=== PATIENT | female | born 1975 | race Caucasian/White ===

== ENCOUNTER 2016-07-09 00:30 | Emergency (ER) | payer SELFPAY ==
[2016-07-09 00:45] VITALS: BMI 23.9
--- NOTE | 2016-07-09 01:01 | DR.GENAD ---
HPI - PCP Primary Care Physician: nfd - HPI Comment HPI Comment: PATIENT SAID THE PALPITATION WAKES HER UP SOME TIME. CAFFEINE MAKES IT WORSE. TONIGHT WOKE UP WITH AN EPISODE THAT IS MAKING HER DIZZY. NO FEVER. DENIES USE OF ILLICIT DRUGS. PATIENT IS SLEEPING POORLY.THIS ALSO IS GETTING WORSE. - Complaint/Symptoms Chief Complaint Doctors Comments: PALPITATION ON AND OFF FOR FEW WEEKS. Chief Complaint:: heart feels like its in a weird rhythm for a couple of weeks now. if patient drinks tea or soda it makes her heart feel weird also.patient can sleep well because of it patient has a history of palpatations. patient stays hot all the time. - Nurses notes reviewed Nurses Notes Review: Yes - Source History Provided: Patient - Mode of Arrival Mode of Arrival: Ambulatory - Timing Onset of Chief Complaint: 06/24/16 Came on: Suddenly - Duration Duration: Constant Duration: Days - Severity Severity: Moderate PMH - PMH Past Medical History: Yes Past Medical History: Anxiety Past Medical History Comment: palpatations Past Surgical History: Yes Surgical History: Hysterectomy Past Surgical History Comment: tubeligation - Family History History of Family Medical Conditions: Yes Family Medical History: Cancer - Social History Does patient currently use any type of tobacco product: Yes Have you used tobacco products in the last 12 months: Yes Type of Tobacco Use: Cigarettes How many years tobacco product used: 27 Does any household member use tobacco: Yes Alcohol Use: None Do you use any recreational Drugs:: No Lives With: Significant Other Lives Where: Home - infectious screening In the last 2 months have you had wt loss of >10#?: NO Have you had fever, night sweats or hemotysis?: No Have you traveled outside the country in the last 6 months?: No Isolation: Standard ROS - Review of Systems Constitutional: Weakness, Fatigue. negative: Chills, Fever Eyes: No Symptoms Reported. negative: Eye Pain, Discharge ENTM: No Symptoms Reported. negative: Ear Pain, Nose Discharge, Nose Congestion , Throat Pain Respiratoy: No Symptoms Reported. negative: Productive Cough, Non-Productive Cough, Short of Breath, Wheezing, Hemoptysis Cardiovascular: Palpitations Gastrointestinal/Abdominal: Nausea. negative: Abdominal Pain, Constipation, Diarrhea, Vomiting Genitourinary: No Symptoms Reported. negative: Dysuria, Frequency, Hematuria Neurological: No Symptoms Reported, Weakness, Dizziness. negative: Headache Musculoskeletal: Muscle Pain Integumentary: No Symptoms Reported Hematologic/Lymphatic: No Symptoms Reported Endocrine: No Symptoms Reported All Other Systems: Reviewed and Negative PE - Vital Signs Vitals: Temperature 97.4 F Pulse Rate [Left Brachial] 69 Pulse Rate 75 Respiratory Rate 16 Blood Pressure [Left Arm] 104/68 Blood Pressure 114/64 O2 Sat by Pulse Oximetry 98 - General Limitations: No Limitations General Appearance: Alert - Head Head Exam: Normal Inspection - Eyes Eye exam: Normal Appearance - ENT ENT Exam: Normal External Ear Exam External Ear Exam: Normal External Inspection TM/Canal Exam: Bilateral Normal Nose Exam: Normal Nose Exam Mouth Exam: Normal Inspection Throat Exam: Normal Inspection - Neck Neck Exam: Normal Inspection - Chest Chest Inspection: Normal Inspection - Respiratory Respiratory Exam: Normal Lung Sounds Bilat Respiratory Exam: Bilateral Clear to Auscultation - Cardiovascular Cardiovascular Exam: Regular Rate, Normal Rhythm, Normal Heart Sounds - Abdominal Exam Abdominal Exam: Normal Bowel Sounds, Soft. negative: Tenderness - Extremities Extremities Exam: Normal Inspection - Back Back Exam: Normal Inspection - Neurologic Neurological Exam: Alert, Oriented X3 - Psychiatric Psychiatric Exam: Anxious - Skin Skin Exam: Normal Color MDM - Additional Information Additional Information Obtained From: Family - Differential Diagnosis Differential Diagnosis: PALPITATION, INSOMNIA Course - Treatment Treatment: SEE ORDERS - Education/Counseling Education/Counseling: Patient, Family, Education Educated On: Diagnosis, Needs for Follow Up ROR - Labs Reviewed Laboratory Results Reviewed?: Yes Result Diagrams: 07/09/16 01:10 07/09/16 01:10 Laboratory: WBC 6.5 X10^3/uL (3.6-10.0) 07/09/16 01:10 RBC 4.51 X10^6/uL (3.5-5.4) 07/09/16 01:10 Hgb 13.4 g/dL (12.0-16.0) 07/09/16 01:10 Hct 40.0 % (36.0-47.0) 07/09/16 01:10 MCV 88.7 fL (80.0-100.0) 07/09/16 01:10 MCH 29.8 pg (27.0-34.0) 07/09/16 01:10 MCHC 33.6 g/dL (33.0-35.0) 07/09/16 01:10 RDW 13.5 % (11.6-16.5) 07/09/16 01:10 Plt Count 176 X10^3/uL (150.0-450.0) 07/09/16 01:10 MPV 9.9 fL (7.4-11.0) 07/09/16 01:10 Neut % 49.5 % (42.0-75.0) 07/09/16 01:10 Lymph % 40.4 % (21.0-51.0) 07/09/16 01:10 Tyrrell % 6.1 % (0.0-13.0) 07/09/16 01:10 Eos % 2.7 % (0.9-2.9) 07/09/16 01:10 Baso % 1.3 % (0.2-1.0) H 07/09/16 01:10 Neut # 3.2 x10^3/uL (2.2-4.8) 07/09/16 01:10 Lymph # 2.6 X10^3/uL (1.3-2.9) 07/09/16 01:10 Tyrrell # 0.4 x10^3/uL (0.3-0.8) 07/09/16 01:10 Eos # 0.2 x10^3/uL (0.0-0.2) 07/09/16 01:10 Baso # 0.1 X10^3/uL (0.0-0.1) 07/09/16 01:10 Absolute Nucleated RBC 0.0 /100WBC 07/09/16 01:10 Sodium 144 mmol/L (136-145) 07/09/16 01:10 Corrected Sodium TNP 07/09/16 01:10 Potassium 4.0 mmol/L (3.5-5.1) 07/09/16 01:10 Chloride 109 mmol/L (98-107) H 07/09/16 01:10 Carbon Dioxide 26.1 mmol/L (21-32) 07/09/16 01:10 BUN 15 mg/dL (7-18) 07/09/16 01:10 Creatinine 0.66 mg/dL (0.55-1.02) 07/09/16 01:10 Est GFR (MDRD) Af Amer > 60 (>60) 07/09/16 01:10 Est GFR (MDRD) Non-Af > 60 (>60) 07/09/16 01:10 Glucose 96 mg/dL (65-99) 07/09/16 01:10 Calcium 9.4 mg/dL (8.5-10.1) 07/09/16 01:10 Corrected Calcium 10.0 mg/dL (8.5-10.1) 07/09/16 01:10 Total Bilirubin 0.20 mg/dL (0.2-1.0) 07/09/16 01:10 AST 14 Units/L (15-37) L 07/09/16 01:10 ALT 18 Units/L (12-78) 07/09/16 01:10 Alkaline Phosphatase 78 Units/L (46-116) 07/09/16 01:10 Creatine Kinase 44 Units/L (26-192) 07/09/16 01:10 CK-MB (CK-2) < 1.0 ng/mL (0-4.0) 07/09/16 01:10 CK/CKMB % Calc 2.3 % (<4) 07/09/16 01:10 Troponin I < 0.02 ng/mL (0-1.5) 07/09/16 01:10 Total Protein 6.7 g/dL (6.4-8.2) 07/09/16 01:10 Albumin 3.3 g/dL (3.4-5.0) L 07/09/16 01:10 Globulin 3.4 g/dL (2.5-4.5) 07/09/16 01:10 Albumin/Globulin Ratio 1.0 Ratio (1.1-2.1) L 07/09/16 01:10 - EKG Rhythm: NSR (EKG NOTED) - Diagnosis Discharge Problem: Palpitation Insomnia Qualifiers: Insomnia type: unspecified Qualified Code(s): G47.00 - Insomnia, unspecified - Discharge Plan Disposition: HOME, SELF-CARE Condition: Stable Prescriptions: Hydroxyzine Pamoate [Vistaril] 50 mg PO HS PRN #20 cap PRN Reason: Insomnia - Follow ups/Referrals Follow ups/Referrals: ORIANA WINN [STAFF PHYSICIAN] - 1 day NFD,None [Primary Care Provider] - 1 day - Instructions Instructions: Palpitations, [id number], Insomnia Additional Instructions: RETURN TO ED IF WORSE.
[2016-07-09 01:29] LABS: BASOPHILS # (AUTO) 0.1 X10^3/uL (0.0-0.1); BASOPHILS % (AUTO) 1.3 % (0.2-1.0); EOSINOPHILS # (AUTO) 0.2 x10^3/uL (0.0-0.2); EOSINOPHILS % (AUTO) 2.7 % (0.9-2.9); HEMOGLOBIN 13.4 g/dL (12.0-16.0); LYMPHOCYTES # (AUTO) 2.6 X10^3/uL (1.3-2.9); LYMPHOCYTES % (AUTO) 40.4 % (21.0-51.0); MEAN CORPUSCULAR HEMOGLOBIN 29.8 pg (27.0-34.0); MEAN CORPUSCULAR HGB CONC 33.6 g/dL (33.0-35.0); MEAN CORPUSCULAR VOLUME 88.7 fL (80.0-100.0); MEAN PLATELET VOLUME 9.9 fL (7.4-11.0); MONOCYTES # (AUTO) 0.4 x10^3/uL (0.3-0.8); MONOCYTES % (AUTO) 6.1 % (0.0-13.0); NEUTROPHILS # (AUTO) 3.2 x10^3/uL (2.2-4.8); NEUTROPHILS % (AUTO) 49.5 % (42.0-75.0); PLATELET COUNT 176 X10^3/uL (150.0-450.0); RED BLOOD COUNT 4.51 X10^6/uL (3.5-5.4); RED CELL DISTRIBUTION WIDTH 13.5 % (11.6-16.5); WHITE BLOOD COUNT 6.5 X10^3/uL (3.6-10.0)
[2016-07-09 01:41] LABS: BLOOD UREA NITROGEN 15 mg/dL (7-18); CALCIUM 9.4 mg/dL (8.5-10.1); CARBON DIOXIDE 26.1 mmol/L (21-32); CHLORIDE 109 mmol/L (98-107); CREATININE 0.66 mg/dL (0.55-1.02); GLUCOSE 96 mg/dL (65-99); SODIUM 144 mmol/L (136-145); TROPONIN I < 0.02 ng/mL (0-1.5); eGFR BLACK RACES > 60 (>60); eGFR NON BLACK RACES > 60 (>60)
[2016-07-09 01:45] LABS: ALANINE AMINOTRANSFERASE 18 Units/L (12-78); ALBUMIN 3.3 g/dL (3.4-5.0); ALKALINE PHOSPHATASE 78 Units/L (46-116); ASPARTATE AMINO TRANSFERASE 14 Units/L (15-37); CKMB % 2.3 % (<4); CREATINE KINASE 44 Units/L (26-192); CREATINE KINASE MB < 1.0 ng/mL (0-4.0); TOTAL PROTEIN 6.7 g/dL (6.4-8.2)
[2016-07-09] MEDS ORDERED: VISTARIL PO ONE (02:35)
[2016-07-09] MEDS: VISTARIL PO ONE ×2 (03:20→03:29)
[2016-07-09 03:47] VITALS: BP 104/68
== END 2016-07-09 03:55 | disposition home or self-care (01) ==
LOC: ER 00:30
DX: G47.09 Other insomnia (principal); R00.2 Palpitations
CPT/HCPCS: 36415; 80053; 82550; 82553; 84484; 85025; 93005; 93010; 99282; 99283; Q0177

== ENCOUNTER 2016-10-11 18:47 | Emergency (ER) | payer SELFPAY ==
[2016-10-11 18:53] VITALS: BP 99/62; BMI 25.2
--- NOTE | 2016-10-11 19:38 | DR.GENAD ---
HPI - PCP Primary Care Physician: nfd - Complaint/Symptoms Chief Complaint:: pt states" i'm having bad headaches in the afternoons for about 2 weeks and my rt ear hurts and i'm coughing up greenish colored mucus" - Source History Provided: Patient - Mode of Arrival Mode of Arrival: Ambulatory - Timing Onset of Chief Complaint: 09/27/16 PMH - PMH Past Medical History: No Past Medical History: Anxiety Past Surgical History: Yes Surgical History: Hysterectomy - Family History History of Family Medical Conditions: Yes Family Medical History: Cancer - Social History Type of Tobacco Use: Cigarettes Does any household member use tobacco: Yes Alcohol Use: None Do you use any recreational Drugs:: No Lives With: Family Lives Where: Home - infectious screening In the last 2 months have you had wt loss of >10#?: NO Have you had fever, night sweats or hemotysis?: No Have you traveled outside the country in the last 6 months?: No Isolation: Standard ROS - Review of Systems Eyes: No Symptoms Reported ENTM: No Symptoms Reported Respiratoy: No Symptoms Reported Cardiovascular: No Symptoms Reported Gastrointestinal/Abdominal: No Symptoms Reported Genitourinary: No Symptoms Reported Neurological: No Symptoms Reported Musculoskeletal: No Symptoms Reported Integumentary: No Symptoms Reported Hematologic/Lymphatic: No Symptoms Reported Endocrine: No Symptoms Reported Psychiatric: No Symptoms Reported All Other Systems: Reviewed and Negative PE - Vital Signs Vitals: Temperature 98.6 F Pulse Rate 75 Respiratory Rate 18 Blood Pressure [Left Arm] 104/68 Blood Pressure 99/62 O2 Sat by Pulse Oximetry 97 - General Limitations: No Limitations General Appearance: Alert, In No Apparent Distress - Head Head Exam: Normal Inspection, Atraumatic - Eyes Eye exam: Normal Appearance, PERRL, EOMI - ENT ENT Exam: Normal Exam External Ear Exam: Normal External Inspection TM/Canal Exam: Bilateral Normal Nose Exam: Normal Nose Exam, Sinus Tenderness Mouth Exam: Normal Inspection Throat Exam: Normal Inspection - Neck Neck Exam: Normal Inspection - Chest Chest Inspection: Normal Inspection - Respiratory Respiratory Exam: Normal Lung Sounds Bilat Respiratory Exam: Bilateral Clear to Auscultation - Cardiovascular Cardiovascular Exam: Regular Rate, Normal Rhythm - Abdominal Exam Abdominal Exam: Normal Inspection, Normal Bowel Sounds Abdominal Tenderness: negative: RUQ, RLQ, LUQ, LLQ, Epigastrium, Suprapubic, Diffuse, Mild, Moderate, Severe, Other - Extremities Extremities Exam: Normal Inspection - Back Back Exam: Normal Inspection, Full ROM - Neurologic Neurological Exam: Alert, Oriented X3, CN II-XII Intact - Psychiatric Psychiatric Exam: Normal Affect - Skin Skin Exam: Warm, Dry, Intact ROR - Labs Reviewed Laboratory Results Reviewed?: Yes Result Diagrams: 10/11/16 20:15 Laboratory: WBC 6.7 X10^3/uL (3.6-10.0) 10/11/16 20:15 RBC 4.52 X10^6/uL (3.5-5.4) 10/11/16 20:15 Hgb 13.8 g/dL (12.0-16.0) 10/11/16 20:15 Hct 39.9 % (36.0-47.0) 10/11/16 20:15 MCV 88.2 fL (80.0-100.0) 10/11/16 20:15 MCH 30.6 pg (27.0-34.0) 10/11/16 20:15 MCHC 34.7 g/dL (33.0-35.0) 10/11/16 20:15 RDW 13.6 % (11.6-16.5) 10/11/16 20:15 Plt Count 187 X10^3/uL (150.0-450.0) 10/11/16 20:15 MPV 9.5 fL (7.4-11.0) 10/11/16 20:15 Neut % 56.1 % (42.0-75.0) 10/11/16 20:15 Lymph % 33.1 % (21.0-51.0) 10/11/16 20:15 Liberty % 7.2 % (0.0-13.0) 10/11/16 20:15 Eos % 2.3 % (0.9-2.9) 10/11/16 20:15 Baso % 1.3 % (0.2-1.0) H 10/11/16 20:15 Neut # 3.8 x10^3/uL (2.2-4.8) 10/11/16 20:15 Lymph # 2.2 X10^3/uL (1.3-2.9) 10/11/16 20:15 Liberty # 0.5 x10^3/uL (0.3-0.8) 10/11/16 20:15 Eos # 0.2 x10^3/uL (0.0-0.2) 10/11/16 20:15 Baso # 0.1 X10^3/uL (0.0-0.1) 10/11/16 20:15 Absolute Nucleated RBC 0.0 /100WBC 10/11/16 20:15 Streptococcus Screen Negative (NEGATIVE) 10/11/16 19:40 - XRAY XRAY Interpreted by: Radiologist (chest x ray: no acute abdnormality) - Diagnosis Discharge Problem: Bronchitis - Discharge Plan Condition: Stable - Follow ups/Referrals Follow ups/Referrals: NFD,None [Primary Care Provider] - 3 days - Instructions
--- NOTE | 2016-10-11 20:05 | RAD ---
Chest, two views Indication: Chest pain, cough. Comparison: 01/01/2016 Findings: Cardiac silhouette is unremarkable. The lungs are clear without focal infiltrate or pleura l effusion. The bony thorax is unremarkable. Impression: No acute chest process. Reported By:
[2016-10-11 20:21] LABS: BASOPHILS # (AUTO) 0.1 X10^3/uL (0.0-0.1); BASOPHILS % (AUTO) 1.3 % (0.2-1.0); EOSINOPHILS # (AUTO) 0.2 x10^3/uL (0.0-0.2); EOSINOPHILS % (AUTO) 2.3 % (0.9-2.9); HEMATOCRIT 39.9 % (36.0-47.0); HEMOGLOBIN 13.8 g/dL (12.0-16.0); LYMPHOCYTES # (AUTO) 2.2 X10^3/uL (1.3-2.9); LYMPHOCYTES % (AUTO) 33.1 % (21.0-51.0); MEAN CORPUSCULAR HEMOGLOBIN 30.6 pg (27.0-34.0); MEAN CORPUSCULAR HGB CONC 34.7 g/dL (33.0-35.0); MEAN CORPUSCULAR VOLUME 88.2 fL (80.0-100.0); MEAN PLATELET VOLUME 9.5 fL (7.4-11.0); MONOCYTES # (AUTO) 0.5 x10^3/uL (0.3-0.8); MONOCYTES % (AUTO) 7.2 % (0.0-13.0); NEUTROPHILS # (AUTO) 3.8 x10^3/uL (2.2-4.8); NEUTROPHILS % (AUTO) 56.1 % (42.0-75.0); PLATELET COUNT 187 X10^3/uL (150.0-450.0); RED BLOOD COUNT 4.52 X10^6/uL (3.5-5.4); RED CELL DISTRIBUTION WIDTH 13.6 % (11.6-16.5); WHITE BLOOD COUNT 6.7 X10^3/uL (3.6-10.0)
== END 2016-10-11 20:40 | disposition home or self-care (01) ==
LOC: ER 19:04
DX: J40 Bronchitis, not specified as acute or chronic (principal)
CPT/HCPCS: 36415; 71020; 85025; 87070; 87880; 99283

== ENCOUNTER 2016-12-20 14:20 | Emergency (ER) | payer SELFPAY ==
[2016-12-20 14:27] VITALS: BP 101/62; BMI 24.7
--- NOTE | 2016-12-20 15:54 | DR.GENAD ---
HPI - PCP Primary Care Physician: NFD - HPI Comment HPI Comment: FEVER AT HOME. EXPOSE TO CLEANING CHEMICALS WHICH MAY BE CAUSE SYMTOMS. - Complaint/Symptoms Chief Complaint Doctors Comments: COUGH, COLD CONGESTION TIMES ONE MONTH. WORSE TODAY. Chief Complaint:: " CCC, WORSE AT NIGHT FEVER, CHILLS" Self Treatment fo Chief Complaint: OTC DROPS, NYQUIL - Nurses notes reviewed Nurses Notes Review: Yes - Source History Provided: Patient - Mode of Arrival Mode of Arrival: Ambulatory - Timing Onset of Chief Complaint: 12/18/16 Came on: Suddenly - Duration Duration: Constant Duration: Days - Severity Severity: Moderate PMH - PMH Past Medical History: Yes Past Medical History: Anxiety Past Surgical History: Yes Surgical History: Hysterectomy - Family History History of Family Medical Conditions: Yes Family Medical History: Cancer - Social History Does patient currently use any type of tobacco product: Yes Have you used tobacco products in the last 12 months: Yes How many years tobacco product used: 20 Does any household member use tobacco: No Alcohol Use: None Do you use any recreational Drugs:: No Lives With: Family Lives Where: Home - infectious screening In the last 2 months have you had wt loss of >10#?: NO Have you had fever, night sweats or hemotysis?: No Have you traveled outside the country in the last 6 months?: No Isolation: Standard ROS - Review of Systems Constitutional: Weakness, Fatigue. negative: Chills, Fever Eyes: negative: Eye Pain, Discharge ENTM: Nose Discharge, Nose Congestion, Throat Pain. negative: Ear Pain Respiratoy: Productive Cough. negative: Short of Breath, Wheezing, Hemoptysis Cardiovascular: Chest Pain Gastrointestinal/Abdominal: No Symptoms Reported Genitourinary: No Symptoms Reported Neurological: No Symptoms Reported Musculoskeletal: Muscle Pain Integumentary: No Symptoms Reported Hematologic/Lymphatic: No Symptoms Reported Endocrine: No Symptoms Reported All Other Systems: Reviewed and Negative PE - Vital Signs Vitals: Temperature 98.2 F Pulse Rate 92 Respiratory Rate 20 Blood Pressure [Left Arm] 104/68 Blood Pressure 101/62 O2 Sat by Pulse Oximetry 96 - General Limitations: No Limitations General Appearance: Alert - Head Head Exam: Normal Inspection - Eyes Eye exam: Normal Appearance - ENT ENT Exam: Normal External Ear Exam External Ear Exam: Normal External Inspection TM/Canal Exam: Bilateral Normal Nose Exam: Normal Nose Exam Mouth Exam: Normal Inspection Throat Exam: Normal Inspection - Neck Neck Exam: Trachea Midline - Chest Chest Inspection: Symmetric Chest Wall Rise - Respiratory Respiratory Exam: Normal Lung Sounds Bilat Respiratory Exam: Bilateral Rhonchi, Upper Rhonchi, Lower Rhonchi - Cardiovascular Cardiovascular Exam: Regular Rate, Normal Rhythm, Normal Heart Sounds - Abdominal Exam Abdominal Exam: Normal Inspection - Extremities Extremities Exam: Normal Inspection - Back Back Exam: Normal Inspection - Neurologic Neurological Exam: Alert, Oriented X3 - Psychiatric Psychiatric Exam: Normal Affect, Normal Mood - Skin Skin Exam: Normal Color MDM - Additional Information Additional Information Obtained From: Family - Differential Diagnosis Differential Diagnosis: ACUTE BRONCHITIS, PNEUMONIA. Course - Treatment Treatment: SEE ORDERS. - Education/Counseling Education/Counseling: Patient, Family, Education Educated On: Diagnosis, Needs for Follow Up ROR - XRAY XRAY Interpreted by: Radiologist XRAY Findings: REPORT DISCUSS WITH PATIENT. - Diagnosis Discharge Problem: Bronchitis - Discharge Plan Disposition: 01 HOME, SELF-CARE Condition: Stable Prescriptions: Amoxicillin [Amoxil 875 mg] 875 mg PO Q12H #20 tab Benzonatate [Tessalon Perle] 200 mg PO TID PRN #30 cap PRN Reason: Cough Methylprednisolone Dosepak 4Mg [MEDROL DOSEPAK (4 mg tab x 21)] 1 valery PO ONCE # 1 valery - Follow ups/Referrals Follow ups/Referrals: NFD,None [Primary Care Provider] - 3 days - Instructions Instructions: Acute Bronchitis, [id number] Additional Instructions: RETURN TO ED IF WORSE.
--- NOTE | 2016-12-20 16:16 | RAD ---
HISTORY: Cough and congestion. Fever. Study: Two-view chest. Comparison: 10/11/2016. Findings: The trachea is midline. The cardiac silhouette is within normal limits. The lungs are clear without focal infiltrate or effusion. The bony thorax is unremarkable. IMPRESSION: No acute cardiopulmonary disease. Reported By:
== END 2016-12-20 16:24 | disposition home or self-care (01) ==
LOC: ER 14:54
DX: J40 Bronchitis, not specified as acute or chronic (principal)
CPT/HCPCS: 71020; 99282